=== PATIENT | female | born 1930 | race Caucasian/White ===

== ENCOUNTER 2017-09-21 19:46 | Emergency (ER) | payer OTHER ==
[~2017-09-21] VITALS: Ht 180.3 cm; Wt 90.7 kg
--- NOTE | ~2017-09-21 | EKG ---
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
[2017-09-21] MEDS ORDERED: AMLODIPINE BESY10 MG PO (20:20)
[2017-09-21] MEDS ORDERED: MILK OF MA2400 MG/10 PO (20:20)
[2017-09-21] MEDS ORDERED: LISINOPRIL5 MG PO (20:20)
[2017-09-21] MEDS ORDERED: QUININE HCL1 GM PO (20:21)
[2017-09-21 21:08] LABS: ABSOLUTE NEUTROPHILS 7.7 thou/uL (1.4-8.2); BASOPHILS 1.3 % (0.0-2.0); EOSINOPHILS 2.7 % (0.0-3.0); HEMATOCRIT 34.2 % (37.0-47.0); HEMOGLOBIN 10.9 gm/dL (12.0-15.0); LYMPHOCYTES 15.5 % (24.0-44.0); MCH 21.8 pg (26.0-34.0); MCHC 31.9 g/dL (28.0-37.0); MCV 68.4 fL (80.0-100.0); MONOCYTES 5.6 % (1.0-8.0); PLATELET COUNT 269 thou/uL (150-400); POLYS 74.9 % (36.0-66.0); RDW 17.3 % (10.5-14.5); WBC 10.3 thou/uL (4.0-11.0)
[2017-09-21 21:30] LABS: ANION GAP 12 mmol/L (7-16); BUN 13 mg/dL (7-18); CALCIUM 8.9 mg/dL (8.5-10.1); CHLORIDE 104 mmol/L (98-107); CO2 24 mmol/L (21-32); CREATININE 1.1 mg/dL (0.6-1.0); POTASSIUM 4.1 mmol/L (3.5-5.1); SODIUM 140 mmol/L (136-145); TROPONIN-I <0.06 ng/mL (<0.06)
[2017-09-21 22:08] LABS: GLUCOSE 143 mg/dL (74-106)
[2017-09-21 22:47] VITALS: BP 178/78
[2017-09-21 23:04] LABS: ANISOCYTOSIS 3+
[2017-09-21 23:05] LABS: HYPOCHROMASIA SLIGHT; LARGE PLATELETS RARE; MACROCYTES 1+; MICROCYTES 2+; POLYCHROMASIA OCCASIONAL
== END 2017-09-21 22:58 | disposition home or self-care (01) ==
LOC: ER 19:46
PROVIDERS: Emergency Medicine
DX: R55 Syncope and collapse (principal); S01.01XA Laceration without foreign body of scalp, initial encounter; Z91.040 Latex allergy status; W19.XXXA Unspecified fall, initial encounter; Y93.89 Activity, other specified; Y92.89 Other specified places as the place of occurrence of the external cause; Y99.8 Other external cause status

== ENCOUNTER 2018-03-29 09:59 | Inpatient (IN) | payer OTHER ==
[~2018-03-29] VITALS: Ht 147.3 cm; Wt 83.0 kg
[~2018-03-29 09:59] MED LIST: AMLODIPINE BESY10 MG PO; LISINOPRIL5 MG PO; MILK OF MA2400 MG/10 PO; QUININE HCL1 GM PO
[2018-03-29 10:02] VITALS: BP 82/45
[2018-03-29] MEDS ORDERED: COZAAR 25 MG TA25 M1 PO (10:15)
[2018-03-29 10:45] LABS: HEMATOCRIT 46.4 % (37.0-47.0); HEMOGLOBIN 13.3 gm/dL (12.0-15.0); MCH 19.8 pg (26.0-34.0); MCHC 28.6 g/dL (28.0-37.0); MCV 69.2 fL (80.0-100.0); PLATELET COUNT 281 thou/uL (150-400); RDW 22.9 % (10.5-14.5); WBC 28.9 thou/uL (4.0-11.0)
[2018-03-29 10:55] LABS: ANION GAP 22 mmol/L (7-16); BUN 35 mg/dL (7-18); CALCIUM 8.5 mg/dL (8.5-10.1); CHLORIDE 101 mmol/L (98-107); CO2 12 mmol/L (21-32); CREATININE 2.8 mg/dL (0.6-1.0); GLUCOSE 293 mg/dL (74-106); POTASSIUM 4.3 mmol/L (3.5-5.1); SODIUM 135 mmol/L (136-145)
[2018-03-29 11:03] LABS: ALBUMIN 2.4 g/dL (3.4-5.0); DIRECT BILIRUBIN < 0.1 mg/dL (<0.1-0.3); LIPASE 161 U/L (73-393); SGOT 23 U/L (15-37); SGPT 15 U/L (30-65); TOTAL BILIRUBIN 0.5 mg/dL (<0.1-1.0); TOTAL PROTEIN 6.3 g/dL (6.4-8.2); TROPONIN-I <0.06 ng/mL (<0.06)
[2018-03-29 11:18] LABS: ANISOCYTOSIS 3+; MICROCYTES 2+; OVALOCYTES FEW
[2018-03-29 12:00] VITALS: BP 147/68
[2018-03-29 13:49] LABS: URINE BILIRUBIN NEGATIVE (Negative); URINE BLOOD 2+ (Negative); URINE CLARITY HAZY; URINE COLOR YELLOW; URINE GLUCOSE-RANDOM* NEGATIVE (Negative); URINE KETONES TRACE (Negative); URINE LEUKOCYTES-REFLEX 1+ (Negative); URINE NITRITE-REFLEX NEGATIVE (Negative); URINE PROTEIN (DIPSTICK) NEGATIVE (Negative); URINE SPECIFIC GRAVITY >= 1.030 (1.005-1.035); URINE UROBILINOGEN 0.2 E.U./dl (0.2-1.0)
[2018-03-29 14:00] LABS: SQUAMOUS 4-10 Moderate /LPF (0-3)
--- NOTE | 2018-03-29 14:00 | NUR ---
PER DR LABOY, NO REPEAT LACTATE ACID, PER COMFORT MEASURES
[2018-03-29 14:01] LABS: URINE RBC 0-2 Rare /HPF (0-2); URINE WBC-REFLEX 6-15 Few /HPF (0-5)
[2018-03-29 14:02] LABS: AMORPHOUS URATES Few /LPF (None Seen); CASTS None Seen /LPF (None Seen)
--- NOTE | 2018-03-29 15:23 | NUR ---
Asked by Nirmala ESCOBAR to follow up on a [facility] consult. Notified the intake number at [phone]. Gave information over phone and then had faxed face-sheet, H&P, ED report and Surgical consult. As of now state they do not have a bed. Reception working on getting a bed most likely on [address] or [address]. 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
--- NOTE | 2018-03-29 15:54 | NUR ---
[facility] FAXED REFERRAL TO HOSPICE HOUSE SPOKE WITH LYNN IN ADM. AND SHE RECEIVED REFERRAL AND SET UP AN RN TO COME AND EVAL. PT. AT 1800 TODAY. DCP WILL NOTIFY PT'S FAMILY OF TIME OF VISIT. DCP TO FOLLOW.
[2018-03-29 16:14] VITALS: BP 88/63
[2018-03-29 17:14] VITALS: BP 88/63
--- NOTE | 2018-03-29 18:19 | NUR ---
PATIENT ADMIT UNIT AT 1600 FROM ER THAT STARTED COMFORT CARE. ABD DISTENDED AND FRIM. PATIRNT MOANNING FOR PAIN. PAIN MED GIVEN. FAMILY AT BEDSIDE.PATIENT AT 1720.
--- NOTE | 2018-03-30 08:13 | EKG ---
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 : 1930 Requested By: Nael Silva Order Number: [id number] MD: Aristeo Fisher Measurements Intervals [place] Rate: 73 P: 61 [place]: 177 QRS: -50 QRSD: 133 T: 5 QT: 458 QTc: 505 Interpretive Statements Sinus rhythm RBBB and LAFB Left ventricular hypertrophy Compared to ECG 09/21/2017 20:18:20 No significant change was found Electronically Signed On 03-30-2018 8:13:23 [employer] by Aristeo Fisher [email or web address] <ELECTRONICALLY SIGNED> By: Aristeo Fisher MD, [facility] 03/30/18 0813 1030 1030 Aristeo Fisher MD, [facility] /EPI
== END 2018-03-29 17:20 | DRG 871 ==
LOC: ER 09:59 → EROBS 12:19 → 3W 15:35
PROVIDERS: Emergency Medicine; ADMIT Hospitalist
DX: A41.9 Sepsis, unspecified organism (principal); R65.21 Severe sepsis with septic shock; K55.9 Vascular disorder of intestine, unspecified; Z51.5 Encounter for palliative care; Z66 Do not resuscitate; K57.90 Diverticulosis of intestine, part unspecified, without perforation or abscess without bleeding; K63.89 Other specified diseases of intestine; D64.89 Other specified anemias; I10 Essential (primary) hypertension; Z90.710 Acquired absence of both cervix and uterus; Z91.040 Latex allergy status; Z79.899 Other long term (current) drug therapy; Z80.9 Family history of malignant neoplasm, unspecified
CPT/HCPCS: 10879